=== PATIENT | female | born 1980 | race Caucasian/White ===

== ENCOUNTER 2017-05-13 22:01 | Emergency (ER) | payer SELFPAY ==
[2017-05-14 04:13] VITALS: BP 103/61
== END 2017-05-14 04:13 | disposition home or self-care (01) ==
LOC: ED 22:01 → EDBD 22:01 → ED 05-14 04:13
DX: S16.1XXA Strain of muscle, fascia and tendon at neck level, initial encounter (principal); S39.012A Strain of muscle, fascia and tendon of lower back, initial encounter; S60.221A Contusion of right hand, initial encounter; S93.401A Sprain of unspecified ligament of right ankle, initial encounter; W01.0XXA Fall on same level from slipping, tripping and stumbling without subsequent striking against object, initial encounter; Y93.89 Activity, other specified; Y92.89 Other specified places as the place of occurrence of the external cause; Y99.8 Other external cause status
CPT/HCPCS: J1885

== ENCOUNTER 2018-04-07 19:38 | Emergency (ER) | payer MEDICAID ==
[~2018-04-07] VITALS: Ht 160 cm; Wt 99.8 kg
[2018-04-07 19:47] VITALS: Ht 160 cm; Wt 99.8 kg
[2018-04-07 22:20] LABS: BASOPHIL % 0.9 % (0-2); PLATELET COUNT 244 x10^3mcL (130-400); RED CELL DISTRIBUTION WIDTH 15.9 % (11.5-14.5)
[2018-04-07 23:13] LABS: POTASSIUM SERUM 3.8 mmol/L (3.5-5.1)
[2018-04-07 23:16] LABS: CALCIUM 9.1 mg/dL (8.5-10.1); CARBON DIOXIDE 28.7 mmol/L (21-32); CREATININE SERUM 1.1 mg/dL (0.6-1.0)
[2018-04-07 23:20] LABS: ALBUMIN 4.6 g/dL (3.4-5.0); BILIRUBIN TOTAL 0.8 mg/dL (0.20-1.00)
[2018-04-07 23:34] LABS: TOTAL PROTEIN, SERUM 9.2 g/dL (6.4-8.2)
[2018-04-07 23:58] LABS: microscopic required? YES; urine erythrocyte 1+ (NEGATIVE)
[2018-04-08 00:18] VITALS: BP 92/57
== END 2018-04-08 00:18 | disposition home or self-care (01) ==
LOC: ED 19:38
PROVIDERS: Emergency Medicine
DX: N23 Unspecified renal colic (principal); N39.0 Urinary tract infection, site not specified
CPT/HCPCS: J1885; J7030